=== PATIENT | female | born 1925 | race Caucasian/White ===

== ENCOUNTER 2016-10-31 15:02 | Emergency (ER) | payer OTHER ==
[2016-10-31] MEDS ORDERED: FAMOTIDINE 20 MG/50 ML IVPB 20 MG in PREMIX 50 IVPB ONE (15:46)
[2016-10-31] MEDS ORDERED: ONDANSETRON 4 MG/2 ML VIAL IVPB ONE (15:46)
--- NOTE | 2016-10-31 15:50 | PDOC ---
History of Present Illness - General History Source: Patient Exam Limitations: No Limitations - History of Present Illness Initial Comments: 10/31/16 17:36 The patient is an 89 year old female with past medical history of hypertension, hyperlipidemia, and diabetes who presents to the ED with complaints of sinus congestion that began this morning. The patient states she woke up feeling very congested and reported a sinus headache as well. She reports taking one dose of Tylenol Severe Sinus for her symptoms followed by breakfast and then another dose of the tylenol. Shortly after she began to feel nauseous and felt some chest tightness when she was dry heaving, which had since subsided. The last epsiode of chest tightness was approx 10am. She reports vomiting 1x today which consisted of broth she had drank just prior. The patient denies any chest pain, shortness of breath, BEAR, exertional symptoms or lightheadedness. She denies any hematemesis, diarrhea, melena, or hematochezia. She reports a dry cough and denies any fevers or chills. Fleet Administrative Assistant: Dr. Ad Mixon <Milena Rivas - Last Filed: 10/31/16 17:36> - General History Source: Patient Exam Limitations: No Limitations - History of Present Illness Initial Comments: 10/31/16 15:49 89y F hx of <Syed Castro - Last Filed: 11/01/16 07:19> - General Chief Complaint: Respiratory Stated Complaint: SINUS PROBLEM WRETCHING Time Seen by Provider: 10/31/16 15:11 Past History <Milena Rivas - Last Filed: 10/31/16 17:36> - Past Medical History Anemia: No Asthma: No Cancer: No Cardiac Disorders: Yes (SOB CHEST DISCOMFORT NEGATIVE STRESS TEST 08/04, [facility]) CVA: No COPD: No CHF: No DVT: Yes Dementia: No Diabetes: Yes (NIDDM) GI Disorders: Yes (GERD DYSPHAGIA) Disorders: No HTN: Yes Hypercholesterolemia: Yes Liver Disease: No Psychiatric Problems: No Seizures: No Thyroid Disease: Yes (HYPOTHROIDISM) - Surgical History Abdominal Surgery: No Appendectomy: No Cardiac Surgery: No Cholecystectomy: No Lung Surgery: No Neurologic Surgery: No Orthopedic Surgery: Yes (KARMA.CARPAL TUNNEL SX 2016) - Psycho/Social/Smoking Cessation Hx Anxiety: No Suicidal Ideation: No Smoking History: Never smoked Have you smoked in the past 12 months: No Information on smoking cessation initiated: No Hx Alcohol Use: Yes (SOCIAL) Drug/Substance Use Hx: No Substance Use Type: Alcohol Hx Substance Use Treatment: No <Syed Castro - Last Filed: 11/01/16 07:19> - Past Medical History Allergies/Adverse Reactions: Allergies Allergy/AdvReac Type Severity Reaction Status Date / Time doxycycline Allergy Severe LABYRINTHIT Verified 10/31/16 15:04 IS Home Medications: Ambulatory Orders Nitroglycerin Sublingual [Nitrostat -] 0.4 mg SL PRN 10/11/12 Aspirin [Ecotrin] 81 mg PO DAILY tablet 07/05/14 Metoprolol Succinate [Toprol Xl -] 25 mg PO DAILY 10/31/16 Review of Systems - Review of Systems Able to Perform ROS?: Yes Comments:: 10/31/16 17:37 CONSTITUTIONAL: No reported: Fever, Chills, Diaphoresis, Generalized Weakness, Malaise, Loss of Appetite HEENT: Reported: nasal congestion No reported: Rhinorrhea,Throat Pain, Throat Swelling, Difficulty Swallowing, Mouth Swelling, Ear Pain, Eye Pain, Visual Changes CARDIOVASCULAR: Reported: chest tightness No reported: Syncope, Palpitations, Irregular Heart Rate, Lightheadedness, Peripheral Edema RESPIRATORY: Reported: dry cough No reported: Shortness of Breath, SOB with Exertion, Orthopnea, Wheezing, Stridor, Hemoptysis GASTROINTESTINAL: Reported: nausea, vomiting No reported: Abdominal pain, Abdominal Distension, Diarrhea, Constipation, Melena, Hematochezia GENITOURINARY: No reported: Dysuria, Frequency, Urgency, Hesitancy, Flank Pain, Genital Pain MUSCULOSKELETAL: No reported: Myalgia, Arthralgia, Joint Swelling, Back pain, Neck Pain SKIN: No reported: Rash, Itching, Pallor HEMEATOLOGIC/IMMUNOLOGIC: No reported: Easy Bleeding, Easy Bruising, Lymphadenopathy, Frequent infections ENDOCRINE: No reported: Unexplained Weight Gain, Unexplained Weight Loss, Heat Intolerance , Cold Intolerance NEUROLOGIC: No reported: Headache, Focal Weakness, Paresthesias, Vertigo, Lightheadedness, Unsteady Gait, Seizure, Mental Status Changes, Incontinence PSYCHIATRIC: No reported: Anxiety, Depression All Other Systems: Reviewed and Negative <Milena Rivas - Last Filed: 10/31/16 17:36> *Physical Exam - Vital Signs Last Vital Signs Temp Pulse Resp BP Pulse Ox 98.6 F 96 H 18 226/101 97 10/31/16 15:03 10/31/16 15:03 10/31/16 15:03 10/31/16 15:03 10/31/16 15:03 - Physical Exam Comments: 10/31/16 17:37 GENERAL: The patient is awake, alert, and fully oriented, Nontoxic - in no acute distress. HEAD: Normocephalic, atraumatic. EYES: extraocular movements intact, sclera anicteric, conjunctiva clear. ENT: Mild erythema of posterior pharynx. Normal voice, Moist mucous membranes. NECK: Normal range of motion, supple LUNGS: Breath sounds equal, clear to auscultation bilaterally. No wheezes, no rhonchi, no rales. HEART: Regular rate and rhythm, without murmur, rub or gallop. ABDOMEN: Soft, nontender, normoactive bowel sounds. No guarding, no rebound.No CVA tenderness EXTREMITIES: Normal range of motion, no edema. No clubbing or cyanosis. No cords , erythema, or tenderness. NEUROLOGICAL: No facial assymetry, Normal speech, PSYCH: Normal mood, normal affect. SKIN: Warm, Dry, normal turgor, <Milena Rivas - Last Filed: 10/31/16 17:36> - Vital Signs Last Vital Signs Temp Pulse Resp BP Pulse Ox 98.6 F 96 H 18 226/101 97 10/31/16 15:03 10/31/16 15:03 10/31/16 15:03 10/31/16 15:03 10/31/16 15:03 <Syed Castro - Last Filed: 11/01/16 07:19> Heart Score/ECG Review - ECG Impressions Comment:: 10/31/16 15:54 Twelve-lead EKG was performed and reviewed by me. There is normal sinus rhythm with a normal rate. Rate of 92 The axis is normal. The intervals are normal. There is normal R wave progression There are no ST or T wave abnormalities. Impression: Normal twelve-lead EKG <Syed Castro - Last Filed: 11/01/16 07:19> ED Treatment Course - LABORATORY CBC & Chemistry Diagram: 10/31/16 16:04 10/31/16 16:04 - ADDITIONAL ORDERS Additional order review: Laboratory Results 10/31/16 10/31/16 16:04 16:04 Sodium 135 L Potassium 3.8 Chloride 103 Carbon Dioxide 23 Anion Gap 9 BUN 28 H D Creatinine 1.2 Creat Clearance w eGFR 42.30 Random Glucose 143 H D Calcium 9.3 Total Bilirubin 1.3 H D AST 27 ALT 19 Alkaline Phosphatase 48 Creatine Kinase 93 Troponin I < 0.03 Total Protein 7.1 Albumin 4.4 Lipase 38 10/31/16 16:04 RBC 3.73 MCV 92.0 MCHC 35.1 RDW 12.9 MPV 8.4 Neutrophils % 76.8 D Lymphocytes % 16.2 D Monocytes % 6.0 Eosinophils % 0.8 Basophils % 0.2 - Medications Given in the ED: ED Medications Discontinued Medications Generic Name Dose Route Start Last Admin Trade Name Freq PRN Reason Stop Dose Admin Famotidine/Sodium Chloride 20 50 mls @ 100 mls/hr 10/31/16 15:46 10/31/16 16:06 mg/ Miscellaneous IVPB 10/31/16 16:15 100 mls/hr ONCE ONE Administration Ondansetron HCl 4 mg 10/31/16 15:46 10/31/16 16:14 Zofran Injection IVPB 10/31/16 15:47 4 mg ONCE ONE Administration <Milena Rivas - Last Filed: 10/31/16 17:36> - LABORATORY CBC & Chemistry Diagram: 10/31/16 16:04 10/31/16 16:04 <Syed Castro - Last Filed: 11/01/16 07:19> Medical Decision Making - Medical Decision Making 10/31/16 15:50 89y F hx of htn, dm, hl, hypothyroidism presents with nausea. The pt states that she has been having nasal congestion this morning, she took a dose of tylenol cold/sinus, stil felt congested so took another dose. She endorses feeling some nausea/chest tightness after starting the medication. The Tightness started with her dry heaves and have resolved. The pt denies any current cp, cp bear, abd pain, back pain, diaphoresis pts vitals notably hypertensive suspect due the medication effect of phenylephrine/decongestant will ck ekg, cxr, trops last episode of CP was at 10am - will obtian trop now, one should be sufficient to screen for ACS as it is now 6 hrs after her initial episode and she has not had any recurrent episodes will give pt ammonmattmelody will reassess 10/31/16 17:24 pt feeling improved asymptomatic no nausea/cp labs reviewed unremarkble beside slightly elevated T bili - no abd pain/ruq pain LFTs normal, trop neg will dc the pt with pmd fu suspect possible acid reflux will recheck the pts bp return precautions were discussed I discussed the physical exam findings, ancillary test results and final diagnoses with the patient. I answered all of the patient's questions. The patient was satisfied with the care received and felt comfortable with the discharge plan and treatment plan. The patient will call their primary care physician within 24 hours to arrange follow-up and will return to the Emergency Department with any new, persistent or worsening symptoms. 11/01/16 07:19 A portion of this note was documented by scribe services under my direction. I have reviewed the details of the note, within reason, and agree with the documentation with the following case summary and management plan written by me <Syed Castro - Last Filed: 11/01/16 07:19> *DC/Admit/Observation/Transfer - Attestations Scribe Attestion: 10/31/16 17:38 Documentation prepared by Milena Rivas, acting as medical cost consultant for Syed Castro MD. <Milena Rivas - Last Filed: 10/31/16 17:36> - Discharge Dispostion Admit: No <Syed Castro - Last Filed: 11/01/16 07:19> Diagnosis at time of Disposition: Nausea, Nasal congestion - Discharge Dispostion Disposition: HOME Condition at time of disposition: Improved - Referrals Referrals: Lonnie Antony MD [Staff Physician] - - Patient Instructions Printed Discharge Instructions: DI for Nausea -- Adult Additional Instructions: Return to the emergency department immediately with ANY new, persistent or worsening symptoms. Make sure your staying well-hydrated. Avoid sinus medications that contain pseudoephrine such as Sudafed and Tylenol Sinus as these can raise your blood pressure. You MUST call and follow up with your doctor tomorrow for further evaluation of your symptoms. Results were discussed with you. Please make sure your doctor reviews the results of your emergency evaluation. Print Language: FRENCH
[2016-10-31] MEDS ORDERED: FAMOTIDINE 20 MG/50 ML IVPB 50 ML IVPB ONE (16:06)
[2016-10-31] MEDS ORDERED: ONDANSETRON 4 MG/2 ML VIAL ONE (16:06)
[2016-10-31 16:27] LABS: BASOPHIL 0.2 % (0-2.0); EOSINOPHIL 0.8 % (0-4.5); MCH 32.3 pg (25.7-33.7); MCHC 35.1 g/dl (32.0-36.0); MEAN PLT VOLUME 8.4 fl (7.5-11.1); NEUTROPHILS 76.8 % (42.8-82.8); PLATELET COUNT 211 K/MM3 (134-434); RDW 12.9 % (11.6-15.6); WHITE BLOOD COUNT 6.9 K/mm3 (4.0-10.8)
[2016-10-31 16:35] VITALS: TEMP 98.6; BMI 23.3
[2016-10-31 16:47] LABS: ALBUMIN 4.4 g/dl (3.5-5.0); ALK PHOS 48 U/L (32-92); ANION GAP 9 (8-16); BILIRUBIN,TOTAL 1.3 mg/dl (0.2-1.0); CALCIUM 9.3 mg/dl (8.4-10.2); CO2 23 mmol/L (22-28); CREATININE 1.2 mg/dl (0.6-1.3); GLUCOSE,RANDOM 143 mg/dl (74-106); SGOT/AST 27 U/L (10-42); SGPT/ALT 19 U/L (10-40); TOT PROT 7.1 g/dl (6.4-8.3)
[2016-10-31 17:05] LABS: CPK 93 IU/L (26-192); TROPONIN I < 0.03 ng/ml (0.00-0.05)
[2016-10-31 17:38] VITALS: BP 164/89; PULSE 86
--- NOTE | 2016-11-03 10:33 | EKG ---
Test Reason : Blood Pressure : / mmHG Vent. Rate : 092 BPM Atrial Rate : 092 BPM P-R Int : 196 ms QRS Dur : 084 ms QT Int : 364 ms P-R-T Axes : 075 007 063 degrees QTc Int : 450 ms NORMAL SINUS RHYTHM NO PREVIOUS ECGS AVAILABLE Confirmed by MD ARGENIS, FACUNDO ([id number]) on 11/03/2016 10:32:57 AM Referred By: REY Confirmed By:FACUNDO MORE MD
== END 2016-10-31 17:40 | disposition home or self-care (01) ==
LOC: FER 15:02
PROC: 3E033GC Introduction of Other Therapeutic Substance into Peripheral Vein, Percutaneous Approach (ICD-10-PCS; principal; 2016-10-31)
DX: R09.81 Nasal congestion (principal); R11.0 Nausea; I10 Essential (primary) hypertension; E78.5 Hyperlipidemia, unspecified; E11.9 Type 2 diabetes mellitus without complications; E03.9 Hypothyroidism, unspecified; K21.9 Gastro-esophageal reflux disease without esophagitis; Z88.1 Allergy status to other antibiotic agents
CPT/HCPCS: 36415; 80053; 83690; 84484; 85025; 93005; 99284-25